=== PATIENT | female | born 1970 | race Caucasian/White ===

== ENCOUNTER 2020-09-21 12:54 | Emergency (ER) | payer MEDICARE, OTHER ==
[~2020-09-21 12:54] MED LIST: NORCO 5-325 TA1 EACH PO; PROZAC 20 MG CA20 MG PO; PROZAC40 MG PO; ROBAXIN500 MG PO; VALIUM 5 MG TAB5 MG PO
[2020-09-21] MEDS ORDERED: VENTOLIN HFA 66.7 GM INH (13:42)
== END 2020-09-21 14:00 | disposition home or self-care (01) ==
LOC: ER1 12:54
DX: I10 Essential (primary) hypertension (principal); R06.02 Shortness of breath; Z90.710 Acquired absence of both cervix and uterus; Z79.899 Other long term (current) drug therapy; Z88.8 Allergy status to other drugs, medicaments and biological substances
CPT/HCPCS: 99284